=== PATIENT | female | born 1945 | race Caucasian/White ===

== ENCOUNTER 2017-08-16 11:37 | Day surgery (SDC) | payer OTHER ==
[~2017-08-16 11:37] MED LIST: ceFAZolin 2 GM/SWFI 2 GM/20 ML SYR IVP ONE
[2017-08-16] MEDS ORDERED: ceFAZolin 2 GM/SWFI 2 GM/20 ML SYR IVP ONE (12:00)
[2017-08-16] MEDS ORDERED: LIDOCAINE 1% 2 ML INJ ID PRN (12:30)
[2017-08-16] MEDS ORDERED: LR 1,000 ML IV ONE (12:30)
[2017-08-16] MEDS ORDERED: LIDOCAINE 1% 2 ML INJ ONE (12:43)
--- NOTE | 2017-08-16 12:49 | PDHPUP ---
History & Physical Update H&P update statement: This history and physical update is based on an assessment of the patient which was completed after admission or registration (within 24 hours), but prior to the surgery/procedure. H&P update: H&P reviewed & patient examined, no change in patient's condition since H&P completed
[2017-08-16] MEDS ORDERED: BACITRACIN 50,000 UNITS/10 ML SYR IRR ONE ×2 (13:10→13:12)
[2017-08-16] MEDS ORDERED: BUPIVACAINE 0.5% 30 ML SDV ONE (13:10)
[2017-08-16] MEDS ORDERED: POLYMYXIN B SULFATE 500,000 UNIT/10 ML SYR IRR ONE (13:10)
--- NOTE | 2017-08-16 13:14 | PDANEPAE ---
ANE History of Present Illness r foot surgery ANE Past Medical History - Cardiovascular History Hx Hypertension: Yes Hx Arrhythmias: No Hx Chest Pain: No Hx Coronary Artery / Peripheral Vascular Disease: No Hx CHF / Valvular Disease: No Hx Palpitations: No - Pulmonary History Hx COPD: No Hx Asthma/Reactive Airway Disease: No Hx Recent Upper Respiratory Infection: No Hx Oxygen in Use at Home: No Hx Sleep Apnea: No Sleep Apnea Screening Result - Last Documented: Negative Pulmonary History Comment: seasonal allergies, prn benadryl - Neurologic History Hx Cerebrovascular Accident: No Hx Seizures: No Hx Dementia: No - Endocrine History Hx Diabetes: No Hypothyroid: No Obesity: no - Renal History Hx Renal Disorders: No - Liver History Hx Hepatic Disorders: No - Neurological & Psychiatric Hx Hx Neurological and Psychiatric Disorders: No - Cancer History Hx Cancer: No - Congenital Disorder History Hx Congenital Disorders: No - GI History GERD: no Hx Gastrointestinal Disorders: No - Other Health History Other Health History: none - Chronic Pain History Chronic Pain: Yes (neck and lower back) - Surgical History Prior Surgeries: varicose vein ablation, eye lid reduction ANE Review of Systems Review of Systems: - Exercise capacity METS (RN): 5 METS ANE Patient History - Allergies Allergies/Adverse Reactions: No Known Allergies Allergy (Verified 08/12/17 12:37) - Home Medications Home Medications: Shiloh Thyroid 08/12/17 [Last Taken Unknown] Triamterene-Hctz 37.5-25 mg Cp 08/12/17 [Last Taken Unknown] - NPO status NPO Since - Liquids (Date): 08/16/17 NPO Since - Liquids (Time): 10:00 NPO Since - Solids (Date): 08/15/17 NPO Since - Solids (Time): 18:00 - Anes Hx Anes Hx: no prior problems - Smoking Hx Smoking Status: Never smoked - Family Anes Hx Family Hx Anesthesia Complications: none ANE Labs/Vital Signs - Vital Signs Blood Pressure: 130/73 Heart Rate: 55 Respiratory Rate: 16 O2 Sat (%): 97 Height: 167.64 cm Weight: 64.41 kg ANE Physical Exam - Airway Neck exam: FROM Mallampati Score: Class 2 Mouth exam: normal dental/mouth exam (upper front dental work) - Pulmonary Pulmonary: clear to auscultation - Cardiovascular Cardiovascular: regular rate and rhythym - ASA Status ASA Status: II ANE Anesthesia Plan Anesthesia Plan: GA with mask
[2017-08-16] MEDS ORDERED: MIDAZOLAM 2 MG/2 ML VIAL IVP ONE (13:16)
[2017-08-16] MEDS ORDERED: fentaNYL 100 MCG/2 ML INJ ONE (13:27)
[2017-08-16] MEDS ORDERED: PROPOFOL 200 MG/20 ML VIAL ONE ×2 (13:27→14:03)
[2017-08-16] MEDS ORDERED: DEXAMETHASONE 4 MG/ML VIAL ONE (13:51)
[2017-08-16] MEDS ORDERED: NALOXONE HCL 0.4 MG/ML INJ IVP PRN (14:46)
[2017-08-16] MEDS ORDERED: fentaNYL 100 MCG/2 ML INJ IVP PRN (14:46)
[2017-08-16] MEDS ORDERED: OXYCODONE/APAP 5/325 TAB PO PRN ×2 (14:46→14:55)
[2017-08-16] MEDS ORDERED: ONDANSETRON 4 MG/2 ML VIAL IVP PRN (14:55)
[2017-08-16] MEDS ORDERED: ONDANSETRON DISINTEGRATING 4 MG TAB PO PRN (14:55)
[2017-08-16 15:58] VITALS: BP 123/68; PULSE 48; RESP 14; TEMP 97.7; O2SAT 96
--- NOTE | 2017-08-19 09:13 | GOP ---
[f rep st] OPERATIVE REPORT DATE OF OPERATION: 08/16/2017 SURGEON: Pa Ascencio DPM HAND PATCHER: None. ANESTHESIA: MAC with local, 30 mL of 0.5% Marcaine plain. PREOPERATIVE DIAGNOSIS: 1. Hallux valgus, right foot. 2. Metatarsus primus varus, right foot. 3. Metatarsalgia, right foot. 4. Subluxation of metatarsophalangeal joint, 2nd, right foot. 5. Transient synovitis, right foot. POSTOPERATIVE DIAGNOSIS: 1. Hallux valgus, right foot. 2. Metatarsus primus varus, right foot. 3. Metatarsalgia, right foot. 4. Subluxation of metatarsophalangeal joint, second, right foot. 5. Transient synovitis, right foot. PROCEDURE PERFORMED: 1. Correction of hallux valgus, right foot. 2. Osteotomy with bone graft, right foot. 3. Osteotomy of 2nd metatarsal, right foot. 4. Open treatment of 2nd metatarsophalangeal joint dislocation, right foot. 5. Extensor tenotomy, right foot. 6. Repair of flexor tendon, right foot. 7. Transfer of flexor tendon, right foot. 8. Arthrocentesis, right foot. FINDINGS: Consistent with diagnosis. ESTIMATED BLOOD LOSS: Zero. DESCRIPTION OF PROCEDURE: After identification, the patient was brought into the operating room and placed on the operating table in the supine position. Following IV sedation, local anesthesia was ob tained around the patient's right foot, utilizing a total of 30 mL 0.5% Marcaine plain. The foot was then scrubbed, prepped, and draped in the usual aseptic manner. A pneumatic ankle tourniquet was pl aced around the patient's right ankle, with ample padding. An Esmarch bandage was utilized to exsang uinate the patient's right foot, and a pneumatic ankle tourniquet was inflated. Attention was then directed to the medial aspect of the patient's right foot, where a 5 cm linear josé luis gitudinal incision was made at the medial aspect of the 1st metatarsophalangeal joint. This incision was deepened to the subcutaneous tissue, with care being taken to identify and retract all vital kavon ral and vascular structures. Bleeders were ligated and cauterized as necessary. The incision was de epened to the level of the capsule, where a lenticular capsulorrhaphy was performed at the medial asp ect of the 1st metatarsophalangeal joint. This lenticular piece of capsule was passed from the opera tive field. The capsular structures were reflected dorsally and plantarly, thus exposing the 1st met atarsophalangeal joint at the operative site. A McGlamry elevator was inserted from medial to latera l, between the plantar aspect of the first metatarsal head and the sesamoid apparatus to serve as a r elease of adhesions, as well as a lateral ligamentous release. Upon completion of this release, the hallux was easily translatable into a more medial and corrected anatomic position. Attention was then directed to the first metatarsal head, where a SCARF Z-shaped osteotomy was made f rom medial to lateral in the head, neck, and shaft of the first metatarsal bone. Upon completion of this xuhbrif-pny-ehhnyjf osteotomy, the capital fragment is translated laterally into a more anatomic position. Following temporary fixation, 2 x 2.5 headless Arthrex screws were driven obliquely acros s this osteotomy site to serve as stable fixation. Redundant medial bone shelf was excised, remodele d, and inserted into the osteotomy site to serve as an autograft. All rough edges were then smoothed with a bone bur. Fixation is noted to be stable at this time. Position of the hallux and 1st ray a re noted to be excellent and anatomic at this time. The incision was then flushed with normal steril e saline solution. Capsular structures were reapproximated utilizing 2-0 Vicryl, subcutaneous tissue s were reapproximated utilizing 3-0 Vicryl, skin reapproximated using 5-0 Vicryl in a running subcuti cular suture technique. Attention was then turned to the dorsal aspect of the patient's right foot, where a 3 cm linear longi tudinal incision was made over the dorsal aspect of the 2nd metatarsophalangeal joint. This incision was deepened to the subcutaneous tissue, with care being taken to identify and retract all vital kavon ral and vascular structures. Bleeders were ligated and cauterized as necessary. A linear capsulotom y was performed between the tendons of the extensor digitorum longus and extensor digitorum brevis. Capsular structures were reflected medially and laterally, thus exposing the 2nd metatarsophalangeal joint at the operative site. A Z-lengthening procedure was made at the tendon of the extensor digito rum longus. Upon lengthening, this was reapproximated utilizing 2-0 Vicryl at anatomic length. Attention was then directed to the 2nd metatarsal, where a Obie oblique osteotomy was performed from dorsal distal to plantar proximal. Upon completion of this vmydncc-roy-maalxtp osteotomy of the 2nd metatarsal head, neck, and shaft, the capital fragment is translated proximally and temporarily fixat ed out of the way. This granted us direct exposure to the plantar ligamentous and tendinous structur es at the 2nd metatarsophalangeal joint. The structure was re-evaluated, and the plantar plate is no wilfredo to be 100% torn. The flexor tendons are also noted to be partially torn. Flexor tendons were fi rst directly repaired using 2-0 Vicryl. The plantar plate structure was then directly repaired using an Arthrex CPR kit. A suture-passing device was used to create a horizontal mattress suture in the proximal portion of the torn plantar plate structure. The flexor tendon apparatus was also gathered in this horizontal mattress suture technique. The FiberWire sutures that have now been passed throug h the plantar ligamentous and tendinous structures of the 2nd metatarsophalangeal joint were set asid e. The 2nd metatarsal head was then brought back out to anatomic length. Following a temporary fixa tion, 2 x 2.0 snap-off Arthrex screws were used to secure the 2nd metatarsal in an anatomic shortened position. Position was noted to be excellent, and fixation was noted to be stable. The FiberWire s utures that have been placed through the plantar plate and flexor tendon structures were then passed through crossing drill holes in the base of the 2nd proximal phalanx and tied to one another at the d orsal aspect of this second proximal phalanx, with the toe in a plantarflexed position. During this technique, the plantar plate, plantar ligamentous structures, flexor tendon structures were transferr ed and secured to the plantar base of the second proximal phalanx. Fixation is noted to be excellent at this time, and repair is noted to be anatomic. This incision was then flushed with normal sterile saline solution. Capsular structures were reappro ximated utilizing 3-0 Vicryl, skin and subcutaneous tissue were reapproximated using 3-0 Vicryl, and skin reapproximated using 5-0 Vicryl in a running subcuticular suture technique. Position of the 1st and 2nd digits noted to be excellent and anatomic at this time. 4 mg dexamethasone was then injecte d into the right foot. The incision sites were then dressed with Steri-Strips, , 4 x 4 gau ze, Webril, Rogelio, Z[place] bandage. The patient transported to the postoperative recovery area with timo l signs stable and vascular status intact to the right foot. The patient tolerated the procedure and anesthesia well. HEMOSTASIS: Right pneumatic ankle tourniquet, inflated to 250 mmHg for 55 minutes. MATERIALS: Arthrex CPR, Arthrex 2.5 headless screw x2, Arthrex snap-off 2.0 screw x2. INJECTABLES: 4 mg dexamethasone. CONDITION: Stable. /[id number]/MODL
== END 2017-08-16 15:59 | disposition home or self-care (01) ==
LOC: FSGY 11:37
PROVIDERS: ATTEND Podiatrist
PROC: 0SSM04Z Reposition Right Metatarsal-Phalangeal Joint with Internal Fixation Device, Open Approach (ICD-10-PCS; principal; 2017-08-16 13:15)
PROC: 0Q8N0ZZ Division of Right Metatarsal, Open Approach (ICD-10-PCS; principal; 2017-08-16 13:15)
PROC: 0QSN0ZZ Reposition Right Metatarsal, Open Approach (ICD-10-PCS; principal; 2017-08-16 13:15)
PROC: 0QBN0ZZ Excision of Right Metatarsal, Open Approach (ICD-10-PCS; principal; 2017-08-16 13:15)
DX: M20.11 Hallux valgus (acquired), right foot (principal); M77.41 Metatarsalgia, right foot; M66.371 Spontaneous rupture of flexor tendons, right ankle and foot; S93.149A Subluxation of metatarsophalangeal joint of unspecified toe(s), initial encounter; Q66.89 Other specified congenital deformities of feet; E03.9 Hypothyroidism, unspecified
CPT/HCPCS: C1713; J0690; J1100; J2250; J2704; J3010